=== PATIENT | male | born 1995 | race Caucasian/White ===

== ENCOUNTER 2017-10-29 11:10 | Emergency (ER) | payer BC, OTHER ==
[~2017-10-29] VITALS: Ht 190.5 cm; Wt 114.4 kg
[2017-10-29 11:11] VITALS: BP 132/83
[2017-10-29] MEDS ORDERED: BACITRACIN ZINC OINT 500U/GM, 0.9 GM ONE ×3 (11:31→12:33)
[2017-10-29] MEDS ORDERED: PHENYLEPHRINE NASAL 1%, 15ML SPRAY ONE (11:50)
[2017-10-29] MEDS ORDERED: SILVER NITRATE STICK TP ONE (12:04)
== END 2017-10-29 12:47 | disposition home or self-care (01) ==
LOC: ED 12:41
DX: R03.0 Elevated blood-pressure reading, without diagnosis of hypertension (principal)
CPT/HCPCS: 99282